=== PATIENT | male | born 1965 | race Caucasian/White ===

== ENCOUNTER 2020-06-22 06:41 | Outpatient (CLI) | payer OTHER, SELFPAY ==
[2020-06-22 07:45] LABS: Cholesterol 185 mg/dL (0-200); HDL Direct 44 mg/dL; Triglycerides 147 mg/dL (<150)
[2020-06-22 07:56] LABS: LDL Cholesterol Direct 97 mg/dL
== END 2020-06-22 06:42 | disposition home or self-care (01) ==
LOC: ANHLAB 06:43
PROVIDERS: PCP Nurse Practitioner Family; Visit Provider Internal Medicine Cardiovascular Disease
DX: I25.10 Atherosclerotic heart disease of native coronary artery without angina pectoris (principal)
CPT/HCPCS: 36415; 80061

== ENCOUNTER 2020-10-17 14:33 | Outpatient (CLI) | payer OTHER, SELFPAY ==
--- NOTE | ~2020-10-17 | XR_ITS ---
EXAMINATION: XR chest 2V 10/17/2020 14:52 INDICATION: Hypertension. PROCEDURE: 2 view chest COMPARISON: No prior studies for comparison. FINDINGS: The lungs are clear. The cardiomediastinal silhouette is within normal limits. There are no pleural effusions. There is no pneumothorax suspected. IMPRESSION: 1: NO ACUTE CARDIOPULMONARY DISEASE. Reviewed, dictated and finalized at location B.
== END 2020-10-17 14:34 | disposition home or self-care (01) ==
LOC: ANHIMG 14:39
PROVIDERS: PCP Nurse Practitioner Family; Visit Provider Nurse Practitioner Family
DX: Z01.818 Encounter for other preprocedural examination (principal)
CPT/HCPCS: 71046

== ENCOUNTER 2021-05-24 06:45 | Outpatient (CLI) | payer OTHER, SELFPAY ==
[2021-05-24 07:11] LABS: Basophils Absolute Auto 0.1 K/mm3 (0.0-0.1); Basophils Percent Auto 0.9 % (0.2-1.2); Eosinophils Absolute Auto 0.4 K/mm3 (0-0.3); Hematocrit 42.5 % (42.0-52.0); Hemoglobin 14.2 g/dL (14.0-18.0); Immature Granulocyte Absolute 0.04 K/mm3 (0.00-0.031); Immature Granulocyte Percent A 0.5 % (0-0.5); Lymphocytes Absolute Auto 2.82 K/mm3 (0.9-3.2); Lymphocytes Percent Auto 32.3 % (18.3-44.2); Mean Corpuscular HGB Conc 33.4 g/dl (32-36); Mean Corpuscular Hemoglobin 30.7 pg (26-34); Mean Corpuscular Volume 91.8 fl (80-100); Mean Platelet Volume 9.9 fl (7.4-10.4); Monocytes Absolute Auto 0.9 K/mm3 (0.1-0.6); Monocytes Percent Auto 9.8 % (2.6-8.5); Neutrophils Absolute Auto 4.5 K/mm3 (1.3-6.7); Neutrophils Percent Auto 51.5 % (45.5-73.1); Platelet Count Result 252 k/mm3 (150-375); Red Blood Count 4.63 M/mm3 (4.6-6.20); Red Cell Distribution Width 12.3 % (11.5-14.5); White Blood Count 8.7 K/mm3 (4.5-10.0)
[2021-05-24 07:19] LABS: Alanine Aminotransferase 29 U/L (4-50); Albumin Level 4.5 g/dL (3.5-5.1); Alkaline Phosphatase 169 U/L (38-126); Anion Gap 7 mmol/L (8-16); Aspartate Amino Transferase 23 U/L (17-59); Bilirubin,Total 0.4 mg/dL (0.2-1.3); Blood Urea Nitrogen 25 mg/dL (9-20); Calcium 9.1 mg/dL (8.4-10.2); Carbon Dioxide 24 mmol/L (22-30); Chloride 105 mmol/L (98-107); Cholesterol 148 mg/dL (0-200); Estimated Glomerular Filt Rate > 60; Glucose 118 mg/dL (65-110); HDL Direct 41 mg/dL; Potassium 4.2 mmol/L (3.4-5.0); Sodium 136 mmol/L (137-145); Triglycerides 166 mg/dL (<150)
[2021-05-24 07:30] LABS: LDL Cholesterol Direct 68 mg/dL
[2021-05-24 07:49] LABS: Prostate Specific Antigen 1.1 ng/mL (< OR = 4.0)
== END 2021-05-24 06:46 | disposition home or self-care (01) ==
LOC: ANHLAB 06:48
PROVIDERS: PCP Nurse Practitioner Family; Visit Provider Nurse Practitioner Family
DX: E78.5 Hyperlipidemia, unspecified (principal); I10 Essential (primary) hypertension; Z12.5 Encounter for screening for malignant neoplasm of prostate
CPT/HCPCS: 36415; 80053; 80061; 84153; 84443; 85025; G0103

== ENCOUNTER 2021-06-07 06:45 | Outpatient (CLI) | payer OTHER, SELFPAY ==
[2021-06-07 07:49] LABS: Hemoglobin A1C 5.9 % (<5.7)
== END 2021-06-07 06:46 | disposition home or self-care (01) ==
PROVIDERS: PCP Nurse Practitioner Family; Referring Provider Internal Medicine Cardiovascular Disease; Visit Provider Nurse Practitioner Family
DX: R73.9 Hyperglycemia, unspecified (principal)
CPT/HCPCS: 36415; 83036

== ENCOUNTER 2022-10-22 07:12 | Outpatient (CLI) | payer OTHER, SELFPAY ==
[2022-10-22 08:13] LABS: Alanine Aminotransferase 37 U/L (6-50); Albumin Level 4.3 g/dL (3.5-5.1); Alkaline Phosphatase 142 U/L (38-126); Anion Gap 9 mmol/L (8-16); Aspartate Amino Transferase 28 U/L (17-59); Bilirubin,Total 0.5 mg/dL (0.2-1.3); Blood Urea Nitrogen 22 mg/dL (9-20); Calcium 9.4 mg/dL (8.4-10.2); Carbon Dioxide 24 mmol/L (22-30); Chloride 104 mmol/L (98-107); Cholesterol 155 mg/dL (0-200); Estimated Glomerular Filt Rate > 60; Glucose 113 mg/dL (65-110); HDL Direct 41 mg/dL; Potassium 4.2 mmol/L (3.4-5.0); Sodium 137 mmol/L (137-145); Triglycerides 177 mg/dL (<150)
[2022-10-22 08:24] LABS: LDL Cholesterol Direct 71 mg/dL
== END 2022-10-22 07:13 | disposition home or self-care (01) ==
PROVIDERS: PCP Nurse Practitioner Family
DX: E78.5 Hyperlipidemia, unspecified (principal); I25.10 Atherosclerotic heart disease of native coronary artery without angina pectoris
CPT/HCPCS: 36415; 80053; 80061; 83036

== ENCOUNTER 2023-10-04 07:23 | Outpatient (CLI) | payer OTHER, SELFPAY ==
[2023-10-04 08:01] LABS: Hematocrit 42.7 % (42.0-52.0); Hemoglobin 13.9 g/dL (14.0-18.0); Mean Corpuscular HGB Conc 32.6 g/dl (32-36); Mean Platelet Volume 10.1 fl (7.4-10.4); Platelet Count Result 235 k/mm3 (150-375); Red Blood Count 4.64 M/mm3 (4.6-6.20); Red Cell Distribution Width 12.4 % (11.5-14.5); White Blood Count 7.8 K/mm3 (4.5-10.0)
[2023-10-04 08:12] LABS: Alanine Aminotransferase 27 U/L (6-50); Albumin Level 4.3 g/dL (3.5-5.1); Alkaline Phosphatase 115 U/L (38-126); Anion Gap 7 mmol/L (4-12); Aspartate Amino Transferase 21 U/L (17-59); Bilirubin,Total 0.7 mg/dL (0.2-1.3); Blood Urea Nitrogen 18 mg/dL (9-20); Calcium 9.3 mg/dL (8.4-10.2); Carbon Dioxide 26 mmol/L (22-30); Chloride 106 mmol/L (98-107); Cholesterol 127 mg/dL (0-200); Estimated Glomerular Filt Rate > 60; Glucose 105 mg/dL (65-110); HDL Direct 37 mg/dL; Sodium 139 mmol/L (137-145); Triglycerides 194 mg/dL (<150)
[2023-10-04 08:21] LABS: Hemoglobin A1C 5.9 % (<5.7)
[2023-10-04 08:23] LABS: LDL Cholesterol Direct 67 mg/dL
[2023-10-04 08:42] LABS: Prostate Specific Antigen 1.4 ng/mL (< OR = 4.0)
[2023-10-04 08:54] LABS: Thyroid Stimulating Hormone Reflex 0.533 uIU/mL (0.465-4.68)
== END 2023-10-04 07:24 | disposition home or self-care (01) ==
PROVIDERS: PCP Nurse Practitioner Family; Visit Provider Nurse Practitioner Family
DX: Z13.0 Encounter for screening for diseases of the blood and blood-forming organs and certain disorders involving the immune mechanism (principal); Z13.1 Encounter for screening for diabetes mellitus; Z13.220 Encounter for screening for lipoid disorders; Z12.5 Encounter for screening for malignant neoplasm of prostate
CPT/HCPCS: 36415; 80053; 80061; 83036; 84153; 84443; 85027; G0103

== ENCOUNTER 2024-10-19 09:37 | Outpatient (CLI) | payer OTHER, SELFPAY ==
[2024-10-19 10:05] LABS: Hematocrit 42.2 % (42.0-52.0); Hemoglobin 13.9 g/dL (14.0-18.0); Mean Corpuscular HGB Conc 32.9 g/dl (32-36); Mean Corpuscular Hemoglobin 29.8 pg (26-34); Mean Corpuscular Volume 90.4 fl (80-100); Platelet Count Result 247 k/mm3 (150-375); Red Blood Count 4.67 M/mm3 (4.6-6.20); Red Cell Distribution Width 12.4 % (11.5-14.5); White Blood Count 8.4 K/mm3 (4.5-10.0)
[2024-10-19 10:48] LABS: Thyroid Stimulating Hormone Reflex 0.761 uIU/mL (0.465-4.68)
[2024-10-19 10:55] LABS: Prostate Specific Antigen 1.4 ng/mL (< OR = 4.0)
== END 2024-10-19 09:38 | disposition home or self-care (01) ==
LOC: ANHLAB 09:39
PROVIDERS: PCP Nurse Practitioner Family; Visit Provider Nurse Practitioner Family
DX: Z13.29 Encounter for screening for other suspected endocrine disorder (principal); Z12.5 Encounter for screening for malignant neoplasm of prostate; Z13.0 Encounter for screening for diseases of the blood and blood-forming organs and certain disorders involving the immune mechanism
CPT/HCPCS: 36415; 84153; 84443; 85027